=== PATIENT | female | born 1960 | race Caucasian/White ===

== ENCOUNTER 2023-10-24 08:35 | Outpatient (CLI) | payer BC | END 2023-10-24 08:36 | disposition home or self-care (01) | LOC: CT 08:35 | PROVIDERS: ATTEND Otolaryngology Plastic Surgery within the Head & Neck | DX: H90.0 Conductive hearing loss, bilateral (principal); H81.8X1 Other disorders of vestibular function, right ear; Q16.3 Congenital malformation of ear ossicles | CPT/HCPCS: 70480 ==